=== PATIENT | female | born 1960 | race Caucasian/White ===

== ENCOUNTER 2020-05-21 09:35 | Outpatient (CLI) | payer OTHER, SELFPAY ==
--- NOTE | 2020-07-01 16:23 | WPDHOMESLEEP ---
Sleep Study - Home Unattended Date of Study: 05/21/20 Ordering Provider: Sam Masterson PA-C Interpreting Physician: Ness Lobato MD Home Sleep Study Type: Apnea Link Air Height: 1.63 m Weight: 113.398 kg Body Mass Index: 42.9 Neck Circumference (inches): 16.5 [place]: 7 Reason for Sleep Study witnessed apnea with colonoscopy, loud snoring Sleep History Ashanti Byers is a 60 year old female who had witnessed apneas during a colonoscopy, and was recommended to have an evaluation for obstructive sleep apnea. She occasionally snores, however only rarely is it loud enough that others complain about it. She rarely wakes at night with heartburn, belching or coughing. Occasionally awakens from sleep short of breath; constantly has trouble sleep with cold, occasionally wakes up gasping for breath at night. She rarely has breathing problems at night observed by others, rarely sweats excessively at night and rarely notices her heart pounding or beating irregularly at night. She never falls asleep during the day, involuntarily, while driving, during physical effort and does not have loss of muscle tone with strong emotion. She has no problems during the day due to excessive sleepiness. She works as a computer video game designer. She does not feel paralyzed waking or falling asleep. She occasionally has vivid dreamlike scenes upon awakening or falling asleep. She is never afraid to go to sleep. She rarely has nightmares. She occasionally remembers her dreams. She occasionally has racing thoughts. She constantly feels sad and depressed. She occasionally has anxiety. She rarely has muscular tension, rarely notices parts of her body jerking, rarely kicks at night and rarely has crawling and aching feelings in her legs. She does not have leg pain at night. She occasionally has morning jaw pain the she occasionally grind her teeth during sleep. She occasionally is bothered by pain during the day, rarely is awakened by pain at night. She rarely wakes up feeling stiff in the morning, occasionally with sore achy muscles. She rarely wakes up with pain in neck and spine. She frequently feels panicked. Normal bedtime is 9:00 p.m., falling asleep within 10 minutes, wakes up 1-3 times at night. These episodes last less than 5 minutes. She tosses and turns, tries to return to sleep. She wakes in the morning at 6:00 a.m.. Weekend schedule is similar, may sleep as late as 7:00 a.m.. She does not usually take naps. A short 10 or 15 minutes nap can be refreshing. Most of the times she feels adequate in the morning. She feels better in the afternoon compared the morning. Habits: tobacco 1 pack per day. Caffeine 1-3 cups per day. Alcohol pack daily. No recreational drugs. [facility] Past Medical History Medical History MARKUS (generalized anxiety disorder) GERD (gastroesophageal reflux disease) Hypertension Smoker Surgical History Surgical History History of appendectomy History of dilatation and curettage History of hernia surgery Family History Family History Father Diabetes mellitus Mother Family history of malignant neoplasm of brain Social History Social History Smoking packs per day: 1 Smoking cigarettes per day: 20.0 Smoking status: Current every day smoker Second hand tobacco smoke exposure: Yes Alcohol intake: current Substance use: never Substance use type: does not use Gender identity (if verbalized by the patient): Female Medications Home Medications Medication Instructions Recorded Confirmed Type lisinopril 20 1 tablet PO DAILY #90 tablet 12/21/19 04/09/20 Rx mg-hydrochlorothiazide 25 mg tablet metoprolol succinate 25 mg 25 mg PO DAILY #30 tablet 04/09/20 04/09/20 Rx tablet,extended release 24 hr paroxetine HCl 40 mg tab
[2020-07-01 17:33] VITALS: BMI 42.9
== END 2020-05-21 09:36 | disposition home or self-care (01) ==
LOC: ANHCSM 09:39
PROVIDERS: PCP Family Medicine; Visit Provider Physician Assistant
DX: G47.30 Sleep apnea, unspecified (principal); G47.33 Obstructive sleep apnea (adult) (pediatric)
CPT/HCPCS: 95806

== ENCOUNTER → 2022-11-04 12:57 | Outpatient (CLI) | payer OTHER, SELFPAY ==
--- NOTE | ~2022-11-04 | CT_ITS ---
EXAMINATION: CT lung screening DATE: 11/04/2022 13:10 INDICATION: Personal history of nicotine dependence TECHNIQUE: Computed tomography (CT) of the chest was performed without intravenous contrast. The dose -length product was 271.72 mGy-cm. Automated exposure control and iterative reconstruction technique were employed. COMPARISON: Chest dated 07/27/2018 FINDINGS: Heart size is normal. No significant pleural or pericardial effusion. No thoracic lymphaden opathy. There is atherosclerosis of the aorta and coronary arteries. There are surgical changes of th e upper abdomen. There is a 3 mm right middle lobe nodule, image 51. There is a 3 mm fissural nodule on the left, image 56. Severe thoracic spondylosis. No acute bone or joint abnormality. No endobronch ial lesions. No pneumothorax. IMPRESSION: 1. Lung-RADS category 2: Benign appearance or behavior. Continue annual screening with noncontrast lo w-dose chest CT in 12 months. Reviewed, dictated and finalized at location L. IMPRESSION: 1. Lung-RADS category 2: Benign appearance or behavior. Continue annual screeni ng with noncontrast low-dose chest CT in 12 months.
== END ==
PROVIDERS: PCP Family Medicine; Visit Provider Physician Assistant
DX: Z12.2 Encounter for screening for malignant neoplasm of respiratory organs (principal); Z87.891 Personal history of nicotine dependence
CPT/HCPCS: 71271

== ENCOUNTER → 2023-02-18 09:57 | Outpatient (CLI) | payer OTHER, SELFPAY ==
--- NOTE | ~2023-02-18 | MM_ITS ---
EXAMINATION: MM screening [facility] BI w [place] HISTORY: Screening mammogram TECHNIQUE: Craniocaudal and mediolateral oblique 3-D tomosynthesis images were obtained and synthetic 2-D images were generated. CAD analysis was submitted and interpreted. COMPARISON: 03/31/2015, 04/10/2012, 03/26/2009 BREAST PARENCHYMAL COMPOSITION: There are scattered areas of fibroglandular density. FINDINGS: No suspicious mass, calcification, or architectural distortion are identified in either zev ast to suggest malignancy. There has been no suspicious interval change. IMPRESSION: 1. No mammographic evidence of malignancy. 2. Recommend routine screening mammography in one year. BI-RADS Category 1: Negative Reviewed, dictated and finalized at location A.
--- NOTE | ~2023-02-18 | DEXA_ITS ---
Bone Density Report Name: ADAM RIVERA Age: 62 Sex: Female Ethnicity: White Date of : 1960 Indication: postmenopausal; screening for osteoporosis; height loss; Referring Provider: TAMIKO CANNON Study: Bone densitometry was performed. Exam Date: February 18, 2023 Accession number: [id number] Bone Density: Region BMD T-score Z-score Classification AP Spine (L1-L4) 1.328 2.6 4.1 Normal Femoral Neck (Left) 0.988 1.3 2.6 Normal Total Hip (Left) 1.259 2.6 3.7 Normal Femoral Neck (Right) 1.025 1.6 3.0 Normal Total Hip (Right) 1.224 2.3 3.4 Normal Total Hip Mean 1.242 2.5 3.6 Normal World Health Organization criteria for BMD impression classify patients as: Normal (T-score at or above -1.0), Osteopenia (T-score between -1.0 and -2.5), or Osteoporosis (T-score at or below -2.5). 10-year Fracture Risk: FRAX not reported because: All T-scores for Spine Total, Hip Total, Femoral Neck at or above -1.0 Previous Exams: Region Exam Age BMD T-score BMD Change BMD Change Date g/cm2 vs Baseline vs Previous AP Spine(L1-L4) 02/18/2023 62 1.328 2.6 0.031* 0.031* 04/10/2012 52 1.297 2.3 Total Hip(Left) 02/18/2023 62 1.259 2.6 0.053* 0.053* 04/10/2012 52 1.206 2.2 Total Hip(Right) 02/18/2023 62 1.224 2.3 -0.020 -0.020 04/10/2012 52 1.244 2.5 *Denotes significance at 95% confidence level, LSC for AP Spine = 0.022 g/cm2, LSC for Total Hip = 0.027 g/cm2 Clinical Information Provided by Patient: Smokes Has 3 or more alcoholic drinks per day Patient maximum height was 64 Menopause Age: 51 No regular weight bearing exercise Does not regularly consume dairy products Drinks caffeinated beverages Onset of menses at age 13.5 Number of children 1 Impression: The patient has normal bone mass. The patient has risk factors, including: smoking, excessive alcohol use. No significant bone loss was observed. Discussion: LOW RISK OF FRACTURE; BONE DENSITY IS WELL ABOVE THE MINIMUM DESIRABLE LEVEL AND ABOVE AVERAGE FOR AGE AND SEX AT ALL SKELETAL SITES TESTED. This person's bone density is above expected limits for age and sex. This is rarely clinically significant, but should be pursued if there are significant musculoskeletal complaints. The patient should follow a healthful lifestyle (good nutrition with adequate calcium and vitamin D, and appropriate weight-bearing exercise). Octavio
== END ==
PROVIDERS: PCP Family Medicine; Visit Provider Family Medicine
DX: Z12.31 Encounter for screening mammogram for malignant neoplasm of breast (principal); Z78.0 Asymptomatic menopausal state
CPT/HCPCS: 77063; 77067; 77080